=== PATIENT | male | born 1955 | race Caucasian/White ===

== ENCOUNTER 2019-06-14 07:12 | Emergency (ER) | payer BC, OTHER ==
[~2019-06-14] VITALS: Ht 185.4 cm; Wt 93.0 kg
[~2019-06-14 07:12] MED LIST: APIX5TAB3 PO; CARV6.252 PO; DULA0.75 SQ; FENO145T38 PO; FLEC100T2 PO; GLIM2TAB3 PO; HYDR25TA4 PO; METF-517 PO; MULT-1085 PO; MULT-1168 PO; OMEG1CAP46 PO; UBID1CAP54 PO; [UNRECOGNIZED DRUG - CODE] PO
[2019-06-14] MEDS ORDERED: diltiazem 5mg/ml 5ml inj. IV ONE (07:35)
[2019-06-14] MEDS ORDERED: magnesium 2GM in 50ml NS 50 ML IV ONE (07:35)
[2019-06-14] MEDS ORDERED: normal saline 1000ML IV soln IVB ONE (07:35)
[2019-06-14 08:11] LABS: BASOPHILS # (AUTO) 0.1 X10'3 (0-0.2); BASOPHILS % (AUTO) 1.1 % (0-1); EOSINOPHILS # (AUTO) 0.2 X10'3 (0-0.9); EOSINOPHILS % (AUTO) 3.2 % (0-6); HEMATOCRIT 44.8 % (42.0-52.0); HEMOGLOBIN 15.7 g/dl (14.0-17.9); LYMPHOCYTES # (AUTO) 1.4 X10'3 (1.1-4.8); MEAN CORPUSCULAR HEMOGLOBIN 32.2 PG (27.0-31.0); MEAN CORPUSCULAR HGB CONC 35.1 g/dL (33.0-36.5); MEAN CORPUSCULAR VOLUME 91.6 FL (78-98); MEAN PLATELET VOLUME 7.8 FL (7.4-10.4); MONOCYTES # (AUTO) 0.4 X10'3 (0-0.9); MONOCYTES % (AUTO) 6.1 % (2-12); NEUTROPHILS # (AUTO) 4.9 X10'3 (1.8-7.7); NEUTROPHILS % (AUTO) 69.6 % (42-75); PLATELET COUNT 191 X10'3 (140-440); RED BLOOD COUNT 4.89 X10'6 (4.70-6.10); RED CELL DISTRIBUTION WIDTH 13.7 % (11.5-14.5)
[2019-06-14 08:28] LABS: ALANINE AMINOTRANSFERASE 33 U/L (12-78); ALBUMIN 4.2 G/DL (3.4-5.0); ALBUMIN/GLOBULIN RATIO 1.3 (1.1-1.5); ALKALINE PHOSPHATASE 82 IU/L (46-116); ANION GAP 11 (8-16); ASPARTATE AMINO TRANSFERASE 18 U/L (10-37); BILIRUBIN,TOTAL 0.7 MG/DL (0.1-1.0); BLOOD UREA NITROGEN 19 MG/DL (7-18); BUN/CREATININE RATIO 22.4 (5.4-32.0); CALCIUM 9.2 MG/DL (8.5-10.1); CHLORIDE 108 MMOL/L (99-107); CREATININE 0.85 MG/DL (0.60-1.10); GLUCOSE 184 MG/DL (70-104); MAGNESIUM 2.2 MG/DL (1.5-2.4); POTASSIUM 3.9 MMOL/L (3.5-5.1); SODIUM 144 MMOL/L (135-145); TOTAL CARBON DIOXIDE 24.7 MMOL/L (24-32); TOTAL PROTEIN 7.5 G/DL (6.4-8.2); eGFR > 90 ML/MIN
[2019-06-14 08:42] LABS: PARTIAL THROMBOPLASTIN TIME 28 SECONDS (22-32)
[2019-06-14] MEDS ORDERED: MIDAZolam 5mg/ml 2ml vial IV ONE (09:05)
[2019-06-14] MEDS ORDERED: etomidate 2mg/ml inj. IV ONE (09:05)
[2019-06-14] MEDS ORDERED: metoprolol tartrate 1mg/ml inj IV ONE (09:05)
--- NOTE | 2019-06-14 10:11 | NUR ---
MD Paul at beside, cardioversion on hold at this time, metoprolol to be given.
--- NOTE | 2019-06-14 10:46 | NUR ---
MD Paul at bedside to begin cardioversion. TANK WAGON OPERATOR at bedside. at bedside. Pt consent already obtained
--- NOTE | 2019-06-14 10:49 | NUR ---
cardioversion shock administered at 200j per MD Paul
--- NOTE | 2019-06-14 10:51 | NUR ---
Per MD Paul, pt has converted to sinus rhythm
--- NOTE | 2019-06-14 11:10 | NUR ---
Pt walked a lap around the ER successfully with nurse at standby.
[2019-06-14 11:16] VITALS: BP 128/82
== END 2019-06-14 11:18 | disposition home or self-care (01) ==
LOC: ER 07:13
DX: I48.91 Unspecified atrial fibrillation (principal); E86.0 Dehydration; E78.00 Pure hypercholesterolemia, unspecified; I10 Essential (primary) hypertension; E11.9 Type 2 diabetes mellitus without complications; G89.29 Other chronic pain; Z98.890 Other specified postprocedural states; Z79.899 Other long term (current) drug therapy
CPT/HCPCS: 36415; 71045; 80053; 83735; 84484; 85025; 85610; 85730; 92960; 93005; 96365; 96375; 99291; J2250; J3475; J7030; J3490

== ENCOUNTER → 2019-09-26 | Emergency (ER) | payer OTHER ==
[~2019-09-26] VITALS: Ht 185.4 cm; Wt 94.0 kg
[~2019-09-26] MED LIST changes: -GLIM2TAB3 PO; +GLIM2TAB6 PO; +ROSU10TA2 PO; +propofol 1000mg/100ml bottle 100 ML IV ONE; +propofol 10mg/ml 20ml vial IV ONE
[2019-09-26 04:50] LABS: BASOPHILS # (AUTO) 0.1 X10'3 (0-0.2); BASOPHILS % (AUTO) 0.8 % (0-1); EOSINOPHILS # (AUTO) 0.4 X10'3 (0-0.9); EOSINOPHILS % (AUTO) 3.6 % (0-6); HEMATOCRIT 49.1 % (42.0-52.0); HEMOGLOBIN 17.2 g/dl (14.0-17.9); MEAN CORPUSCULAR HEMOGLOBIN 31.9 PG (27.0-31.0); MEAN CORPUSCULAR VOLUME 91.2 FL (78-98); MEAN PLATELET VOLUME 8.1 FL (7.4-10.4); MONOCYTES # (AUTO) 0.7 X10'3 (0-0.9); MONOCYTES % (AUTO) 7.3 % (2-12); NEUTROPHILS # (AUTO) 6.5 X10'3 (1.8-7.7); NEUTROPHILS % (AUTO) 67.3 % (42-75); PLATELET COUNT 210 X10'3 (140-440); RED BLOOD COUNT 5.39 X10'6 (4.70-6.10); RED CELL DISTRIBUTION WIDTH 13.5 % (11.5-14.5); WHITE BLOOD COUNT 9.6 X10'3 (4.5-11.0)
[2019-09-26 04:56] LABS: PARTIAL THROMBOPLASTIN TIME 27 SECONDS (22-32)
[2019-09-26 04:57] LABS: ALANINE AMINOTRANSFERASE 38 U/L (12-78); ALBUMIN 4.5 G/DL (3.4-5.0); ALBUMIN/GLOBULIN RATIO 1.4 (1.1-1.5); ALKALINE PHOSPHATASE 128 IU/L (46-116); ANION GAP 10 (8-16); ASPARTATE AMINO TRANSFERASE 11 U/L (10-37); BILIRUBIN,TOTAL 0.4 MG/DL (0.1-1.0); BLOOD UREA NITROGEN 16 MG/DL (7-18); BUN/CREATININE RATIO 17.4 (5.4-32.0); CALCIUM 9.5 MG/DL (8.5-10.1); CHLORIDE 105 MMOL/L (99-107); CREATININE 0.92 MG/DL (0.60-1.10); GLUCOSE 251 MG/DL (70-104); POTASSIUM 3.6 MMOL/L (3.5-5.1); SODIUM 141 MMOL/L (135-145); TOTAL CARBON DIOXIDE 25.6 MMOL/L (24-32); TOTAL PROTEIN 7.8 G/DL (6.4-8.2); eGFR 83 ML/MIN
--- NOTE | 2019-09-26 05:44 | NUR ---
DIPRIVAN TITRATED VIA IV PUSH UP TO [address] NIELSEN FOR 8 MINUTES TO ACCOMPLISH MODERATE SEDATION. RT AT BEDSIDE. PT CARDIOVERTED ONCE HE ATTAINED MODERATE SEDATION.
--- NOTE | 2019-09-26 05:45 | NUR ---
900MG PROPOFOL WASTED WITH STEFANIE GALVAN RN
[2019-09-26 06:15] VITALS: BP 134/82
== END | disposition home or self-care (01) ==
LOC: ER 04:04
DX: I48.0 Paroxysmal atrial fibrillation (principal); E78.00 Pure hypercholesterolemia, unspecified; I10 Essential (primary) hypertension; E11.9 Type 2 diabetes mellitus without complications; G89.29 Other chronic pain; Z98.890 Other specified postprocedural states; Z79.899 Other long term (current) drug therapy
CPT/HCPCS: 36415; 80053; 82948; 84484; 85025; 85610; 85730; 92960; 93005; 99285; J2704

== ENCOUNTER 2023-03-05 21:38 | Emergency (ER) | payer MEDICARE ==
[~2023-03-05] VITALS: Ht 185.4 cm; Wt 207.0 kg
[~2023-03-05 21:38] MED LIST changes: -APIX5TAB3 PO; -HYDR25TA4 PO; -MULT-1085 PO; -OMEG1CAP46 PO; -UBID1CAP54 PO; -propofol 1000mg/100ml bottle 100 ML IV ONE; -propofol 10mg/ml 20ml vial IV ONE
[2023-03-05 21:56] LABS: BASOPHILS # (AUTO) 0.1 X10'3 (0-0.2); LYMPHOCYTES # (AUTO) 2.9 X10'3 (1.1-4.8); MONOCYTES # (AUTO) 0.6 X10'3 (0-0.9); NEUTROPHILS # (AUTO) 4.7 X10'3 (1.8-7.7); WHITE BLOOD COUNT 8.6 X10'3 (4.5-11.0)
[2023-03-05 21:57] LABS: EOSINOPHILS # (AUTO) 0.4 X10'3 (0-0.9); EOSINOPHILS % (AUTO) 4.1 % (0-6); HEMATOCRIT 46.8 % (42.0-52.0); HEMOGLOBIN 16.3 g/dl (14.0-17.9); LYMPHOCYTES % (AUTO) 34.1 % (21-51); MEAN CORPUSCULAR HGB CONC 34.7 g/dL (33.0-36.5); MONOCYTES % (AUTO) 6.6 % (2-12); NEUTROPHILS % (AUTO) 54.2 % (42-75); PLATELET COUNT 180 X10'3 (140-440); RED BLOOD COUNT 4.78 X10'6 (4.70-6.10); RED CELL DISTRIBUTION WIDTH 13.4 % (11.5-14.5)
[2023-03-05 22:18] LABS: ALANINE AMINOTRANSFERASE 33 U/L (12-78); ALBUMIN 4.6 G/DL (3.4-5.0); ALBUMIN/GLOBULIN RATIO 1.3 (1.1-1.5); ALKALINE PHOSPHATASE 104 IU/L (46-116); ANION GAP 13 (8-16); BILIRUBIN,TOTAL 0.5 MG/DL (0.1-1.0); BLOOD UREA NITROGEN 26 MG/DL (7-18); BUN/CREATININE RATIO 24.5 (10.0-20.0); CALCIUM 9.2 MG/DL (8.5-10.1); CHLORIDE 105 MMOL/L (99-107); CREATININE 1.06 MG/DL (0.60-1.10); GLUCOSE 163 MG/DL (70-104); SODIUM 141 MMOL/L (135-145); TOTAL CARBON DIOXIDE 23.4 MMOL/L (24-32); TOTAL PROTEIN 8.1 G/DL (6.4-8.2); eGFR 69 ML/MIN
[2023-03-05 22:41] LABS: ASPARTATE AMINO TRANSFERASE 14 U/L (10-37)
[2023-03-05 22:47] LABS: POTASSIUM 3.9 MMOL/L (3.5-5.1)
[2023-03-06] MEDS ORDERED: normal saline 500ml IV soln 500 ML IV ONE (04:05)
[2023-03-06 05:04] VITALS: BP 147/81
== END 2023-03-06 05:43 | disposition home or self-care (01) ==
LOC: ER 21:38
DX: R42 Dizziness and giddiness (principal); I10 Essential (primary) hypertension; E78.00 Pure hypercholesterolemia, unspecified; E11.9 Type 2 diabetes mellitus without complications
CPT/HCPCS: 36415; 71045; 80053; 82948; 83880; 84484; 85025; 93005; 99285; J7040

== ENCOUNTER 2023-07-05 08:58 | Inpatient (IN) | payer MEDICARE ==
[2023-07-05] VITALS (16 sets, daily range): BP systolic 121–146; BP diastolic 62–82; PULSE 64–92; RESP 10–20; TEMP 97.8; O2SAT 91–99
[~2023-07-05] VITALS: Ht 185.4 cm; Wt 90.9 kg
[2023-07-05] MEDS ORDERED: ipratropium/albuterol 3ml nebule NEB ONE (09:05)
[2023-07-05] MEDS ORDERED: methylPREDNISolone sod succ 125mg/2ml vial IV ONE (09:05)
[2023-07-05 09:33] LABS: BASOPHILS # (AUTO) 0.1 X10'3 (0-0.2); BASOPHILS % (AUTO) 0.8 % (0-1); EOSINOPHILS # (AUTO) 0.2 X10'3 (0-0.9); EOSINOPHILS % (AUTO) 2.1 % (0-6); HEMATOCRIT 40.5 % (42.0-52.0); HEMOGLOBIN 14.2 g/dl (14.0-17.9); LYMPHOCYTES # (AUTO) 1.2 X10'3 (1.1-4.8); LYMPHOCYTES % (AUTO) 10.6 % (21-51); MEAN CORPUSCULAR HEMOGLOBIN 34.3 PG (27.0-31.0); MEAN CORPUSCULAR HGB CONC 35.1 g/dL (33.0-36.5); MEAN CORPUSCULAR VOLUME 97.7 FL (78-98); MEAN PLATELET VOLUME 8.1 FL (7.4-10.4); MONOCYTES # (AUTO) 0.7 X10'3 (0-0.9); MONOCYTES % (AUTO) 6.8 % (2-12); NEUTROPHILS # (AUTO) 8.6 X10'3 (1.8-7.7); NEUTROPHILS % (AUTO) 79.7 % (42-75); PLATELET COUNT 244 X10'3 (140-440); RED BLOOD COUNT 4.14 X10'6 (4.70-6.10); RED CELL DISTRIBUTION WIDTH 12.8 % (11.5-14.5); WHITE BLOOD COUNT 10.8 X10'3 (4.5-11.0)
[2023-07-05 09:44] LABS: D-DIMER 1.74 MG/L FEU (0-0.50)
[2023-07-05 10:24] LABS: ALANINE AMINOTRANSFERASE 38 U/L (12-78); ALBUMIN 3.9 G/DL (3.4-5.0); ALKALINE PHOSPHATASE 130 IU/L (46-116); ANION GAP 9 (8-16); ASPARTATE AMINO TRANSFERASE 34 U/L (10-37); BILIRUBIN,TOTAL 0.8 MG/DL (0.1-1.0); BLOOD UREA NITROGEN 11 MG/DL (7-18); BUN/CREATININE RATIO 14.3 (10.0-20.0); CALCIUM 9.4 MG/DL (8.5-10.1); CHLORIDE 102 MMOL/L (99-107); CREATININE 0.77 MG/DL (0.60-1.10); GLUCOSE 216 MG/DL (70-104); POTASSIUM 4.1 MMOL/L (3.5-5.1); SODIUM 136 MMOL/L (135-145); TOTAL CARBON DIOXIDE 24.8 MMOL/L (24-32); TOTAL PROTEIN 7.8 G/DL (6.4-8.2); eCRCL 104 ML/MIN; eGFR > 90 ML/MIN
[2023-07-05 10:35] LABS: PRO BRAIN NATRIURETIC PEPTIDE 153 PG/ML (0-125)
[2023-07-05] MEDS ORDERED: iohexol 350MG/ML 100ml bottle IV ONE (10:45)
--- NOTE | 2023-07-05 10:45 | NUR ---
PER DR HOLT PT OKAY TO TAKE HIS OWN MORNING MEDICATIONS THAT HAS BROUGHT TO BEDSIDE.
--- NOTE | 2023-07-05 10:47 | NUR ---
HOME MEDS GIVEN BY WERE: JARDIANCE, AMLODIPINE, BENZAPRIL, CARVEDILOL, GLIMPERIDE
[2023-07-05] MEDS: MESSAGE TO NURSING IV SCH (11:00)
[2023-07-05] MEDS ORDERED: PRED20TA PO (11:41)
[2023-07-05] MEDS ORDERED: ALBU6.7H14 INH (11:41)
--- NOTE | 2023-07-05 12:11 | NUR ---
PT AMBULATED TO RESTROOM WITHOUT ASSISTANCE
[2023-07-05] MEDS ORDERED: potassium Cl 20 mEq SR tablet PO PRN ×2 (13:05)
[2023-07-05] MEDS ORDERED: morphine 2 MG/ML inj. syringe IV PRN ×3 (13:05→20:25)
[2023-07-05] MEDS ORDERED: magnesium 4gm in 100ml NS 100 ML IV PRN (13:05)
[2023-07-05] MEDS ORDERED: ondansetron/PF 4mg/2ml inj IV PRN ×4 (13:05→22:00)
[2023-07-05] MEDS ORDERED: magnesium Cl slow-release 64mg tablet PO PRN (13:05)
[2023-07-05] MEDS ORDERED: CefTRIAXone 2gm/D5W 50ml BAG 50 ML IV ONE (13:05)
[2023-07-05] MEDS ORDERED: potassium Cl 40MEQ/1/2NS 520ml 520 ML IV PRN (13:05)
[2023-07-05] MEDS ORDERED: magnesium 2GM in 50ml NS 50 ML IV PRN (13:05)
[2023-07-05] MEDS ORDERED: acetaminophen 325mg tablet PO PRN (13:05)
[2023-07-05] MEDS: normal saline 1000ml 1,000 ML IV SCH (13:14)
[2023-07-05] MEDS ORDERED: FLEC50TA PO (13:19)
[2023-07-05] MEDS ORDERED: DULA1.5P SQ (13:19)
[2023-07-05] MEDS ORDERED: METF-900 PO (13:19)
[2023-07-05] MEDS ORDERED: CARV25TA3 PO (13:19)
[2023-07-05] MEDS ORDERED: BENA40TA72 PO (13:19)
[2023-07-05] MEDS ORDERED: APIX5TAB3 PO (13:19)
[2023-07-05] MEDS ORDERED: EMPA10TA PO (13:19)
[2023-07-05] MEDS ORDERED: AMLO10TA13 PO (13:19)
[2023-07-05] MEDS ORDERED: GLIM4TAB7 PO (13:19)
[2023-07-05] MEDS ORDERED: ROSU10TA28 PO (13:19)
[2023-07-05 13:29] LABS: MAGNESIUM 2.2 MG/DL (1.5-2.4)
--- NOTE | 2023-07-05 15:16 | NUR ---
PT PLACED ON HOSPITAL BED
[2023-07-05 16:20] LABS: HEMOGLOBIN A1C 8.1 % (4.5-6.2)
--- NOTE | 2023-07-05 16:40 | NUR ---
MRSA SWAB COLLECTED
--- NOTE | 2023-07-05 17:56 | NUR ---
DR LOZADA AT BEDSIDE
--- NOTE | 2023-07-05 18:15 | NUR ---
REPORT GIVEN TO SALES ADMINISTRATION MANAGERJARED BENNETT
[2023-07-05] MEDS ORDERED: INDOCYANINE GREEN 25 MG/10 ML VIAL IV ONE (18:54)
[2023-07-05] MEDS ORDERED: BUPIVAcaine 0.5% inj/PF 30 ML ONE (18:54)
[2023-07-05] MEDS ORDERED: hydrALAZINE 20mg/ml inj. IV PRN ×2 (18:55→20:25)
[2023-07-05] MEDS ORDERED: fentaNYL/PF 50MCG/1 ML 2ML syringe IV PRN ×3 (18:55→20:25)
[2023-07-05] MEDS ORDERED: morphine 4 MG/ML inj SYRINge IV PRN ×2 (18:55→20:25)
[2023-07-05] MEDS ORDERED: ringers solution, lacted 1,000 ML IV SCH ×2 (18:55→20:25)
[2023-07-05] MEDS ORDERED: labetalol 20mg/4ml (5mg/ml) syringe IV PRN ×2 (18:55→20:25)
[2023-07-05] MEDS ORDERED: midazolam 1 mg/ML 2ml injection ONE (19:25)
[2023-07-05] MEDS ORDERED: fentaNYL/PF 50MCG/1 ML 2ML syringe ONE (19:25)
[2023-07-05] MEDS ORDERED: LIDOcaine 2% (20mg/ml) 5ml vial ONE (19:26)
[2023-07-05] MEDS ORDERED: propofol inj 20 ML IV ONE (19:26)
[2023-07-05] MEDS ORDERED: rocuronium 10mg/ml inj IV ONE ×2 (19:26→21:15)
[2023-07-05] MEDS ORDERED: ondansetron/PF 4mg/2ml inj ONE (19:26)
[2023-07-05] MEDS ORDERED: desflurane 240ml liquid inh. IH ONE (19:40)
[2023-07-05] MEDS ORDERED: dexamethasone sod phosphate 10mg/ml inj ONE (19:40)
[2023-07-05] MEDS ORDERED: ceFAZolin 1000mg inj ONE ×2 (20:03)
[2023-07-05] MEDS ORDERED: sugammadex 200mg/2ml injection IV ONE (20:06)
[2023-07-05] MEDS ORDERED: BUPIVAcaine/PF 2.5 mg/ml (0.25%) 30ml vial IJ ONE (20:40)
[2023-07-05] MEDS ORDERED: bacitracin 15gm ointment TP ONE ×2 (21:38→22:05)
--- NOTE | 2023-07-05 21:50 | NUR ---
Received from OR via BED IN STABLE CONDITION , accompanied by Anesthesiologist and DYNAMIC BALANCER SET UP WORKER report given by DYNAMIC BALANCER SET UP WORKER AND Anesthesiologist. Addendum: 07/05/23 at 2210 by Barb Porras RN Amended: Links added.
[2023-07-05] MEDS ORDERED: HYDROmorphone inj. 0.5 MG/0.5 ML DISP.SYRIN IV ONE (22:00)
[2023-07-05] MEDS ORDERED: naloxone 0.4 mg/ml inj IV PRN (22:00)
[2023-07-05] MEDS: fentaNYL/PF 50MCG/1 ML 2ML syringe IV PRN ×2 (22:04→22:28)
[2023-07-05] MEDS ORDERED: acetaminophen 1,000mg/100ml IV 100 ML IV ONE (22:05)
[2023-07-05] MEDS: HYDROcodone/acetaminophen 10/325mg tab PO PRN (23:06)
--- NOTE | 2023-07-05 23:43 | NUR ---
PATIENT DISCHARGED FROM PACU IN STABLE CONDITION AFTER REPORT GIVEN TO RN TAKING OVER PATIENTS CARE. PATIENT TRANSFERRED TO ROOM [facility] VIA BED WITH RNX2. Addendum: 07/05/23 at 2346 by Barb Porras RN Amended: Links added.
[2023-07-06] VITALS (12 sets, daily range): BP systolic 114–144; BP diastolic 54–74; PULSE 65–81; RESP 12–20; TEMP 97.1–98.4; O2SAT 91–97
[2023-07-06] MEDS ORDERED: ceFOXitin 1 GM/D5W 50mL IVPB 50 ML IV SCH
[2023-07-06] MEDS ORDERED: methylPREDNISolone sod succ 125mg/2ml vial IV SCH
--- NOTE | 2023-07-06 00:01 | NUR ---
family accompanied patient to bedside. 4009C. oriented to routine, call light etc. family went home soon after. pt resting, eyes closed "the [employer] is working". VSS, oxygen 2L noted sats 96%. urinal in reach, water. dressings CDI
[2023-07-06] MEDS: K and/or MAG REPLACEMENT MC SCH ×3 (00:12→20:00)
[2023-07-06] MEDS: normal saline 1000ml 1,000 ML IV SCH ×3 (00:14→19:28)
[2023-07-06] MEDS: ceFOXitin inj 1,000 MG in normal saline 100ml IV soln 100 ML IV SCH ×3 (00:39→15:40)
[2023-07-06] MEDS ORDERED: DEXTROSE 15 GM of carb/4 tabs (each vial/BOTTLE has 4 tablets) PO PRN ×2 (00:45)
[2023-07-06] MEDS ORDERED: MESSAGE TO PHARMACY PO ONE (00:45)
[2023-07-06] MEDS ORDERED: glucagon, human recombinant 1mg kit SUBCUT PRN (00:45)
[2023-07-06] MEDS ORDERED: dextrose 50%-water 50ml dispensing syringe IV PRN ×2 (00:45)
[2023-07-06] MEDS: insulin Lispro (HumaLOG) vial - multi-dose SQ SCH ×4 (01:39→19:24)
[2023-07-06] MEDS: insulin glargine (Lantus) pen - multi-dose SQ SCH ×2 (01:39→21:03)
[2023-07-06] MEDS: HYDROcodone/acetaminophen 10/325mg tab PO PRN ×4 (03:06→21:10)
--- NOTE | 2023-07-06 06:14 | NUR ---
Patient in room ORTHO 4009. I have received report from JARED Evans and had the opportunity to ask questions and assume patient care.
--- NOTE | 2023-07-06 06:22 | NUR ---
reported to days. noted pt up to bathroom, encouraged to walk. using pillow to splint abd.
[2023-07-06 07:06] LABS: BASOPHILS % (AUTO) 0.3 % (0-1); EOSINOPHILS % (AUTO) 0 % (0-6); HEMATOCRIT 40.6 % (42.0-52.0); HEMOGLOBIN 13.8 g/dl (14.0-17.9); LYMPHOCYTES # (AUTO) 1.1 X10'3 (1.1-4.8); LYMPHOCYTES % (AUTO) 6.3 % (21-51); MEAN CORPUSCULAR HEMOGLOBIN 33.7 PG (27.0-31.0); MEAN CORPUSCULAR HGB CONC 33.9 g/dL (33.0-36.5); MEAN CORPUSCULAR VOLUME 99.7 FL (78-98); MEAN PLATELET VOLUME 8.5 FL (7.4-10.4); MONOCYTES # (AUTO) 1.3 X10'3 (0-0.9); NEUTROPHILS # (AUTO) 15.7 X10'3 (1.8-7.7); NEUTROPHILS % (AUTO) 86.4 % (42-75); PLATELET COUNT 249 X10'3 (140-440); RED BLOOD COUNT 4.08 X10'6 (4.70-6.10); RED CELL DISTRIBUTION WIDTH 13.4 % (11.5-14.5); WHITE BLOOD COUNT 18.2 X10'3 (4.5-11.0)
[2023-07-06 07:17] LABS: ALBUMIN 3.5 G/DL (3.4-5.0); ANION GAP 19 (8-16); BLOOD UREA NITROGEN 23 MG/DL (7-18); CALCIUM 8.9 MG/DL (8.5-10.1); CHLORIDE 102 MMOL/L (99-107); CREATININE 0.96 MG/DL (0.60-1.10); GLUCOSE 220 MG/DL (70-104); MAGNESIUM 2.5 MG/DL (1.5-2.4); POTASSIUM 4.2 MMOL/L (3.5-5.1); SODIUM 140 MMOL/L (135-145); TOTAL CARBON DIOXIDE 19.3 MMOL/L (24-32); eCRCL 83 ML/MIN; eGFR 78 ML/MIN
[2023-07-06] MEDS: carVEDilol 12.5mg tablet PO SCH ×2 (07:50→20:59)
[2023-07-06] MEDS: amLODIPine 5mg tablet PO SCH (07:50)
[2023-07-06] MEDS: lisinopril 20mg tablet PO SCH (07:51)
--- NOTE | 2023-07-06 08:21 | NUR ---
Patient reports flatulence this AM. Absent at the time of physical assessment. Addendum: 07/06/23 at 0826 by Herlinda THAYER Amended: Links added.
--- NOTE | 2023-07-06 10:46 | NUR ---
Diabetes consult: Pt s/p robotic laparoscopic cholecystectomy and hernia repair per EMR. Pt presents with an A1c of 8.1% this admit per EMR. Pt and 2 other family members present at bedside during time of visit. Provided verbal/written diabetes and lower fat nutrition education handouts. Pt reports prior A1c of 9.3% about 3-4 weeks ago at the doctors office, sees his primary doctor about every 3-6 months for diabetes management, and takes his medication as prescribed. Pt reports he's been intentional about eating foods lower in carbohydrates and incorporating more fruits/vegetables into his diet. Pt request sugar free jello and [place] ice with every lunch and dinner; communicated with dietary. RD contact also provided and encouraged pt/family to reach out for any nutrition questions or concerns. Addendum: 07/06/23 at [address] Amended: Links added.
[2023-07-06] MEDS: MESSAGE TO NURSING IV SCH (11:00)
[2023-07-06] MEDS ORDERED: ondansetron 4mg rapidly disintigrating tab PO PRN (11:35)
--- NOTE | 2023-07-06 17:51 | NUR ---
Student documentation: I have reviewed and agree with physical assessments performed and documented by SN Kane.
--- NOTE | 2023-07-06 18:23 | NUR ---
Problems reprioritized. Patient report given, questions answered & plan of care reviewed with JARED Calderon.
--- NOTE | 2023-07-06 19:05 | NUR ---
Patient in room ORTHO 4009. I have received report from [place] COLEMAN and had the opportunity to ask questions and assume patient care.
[2023-07-06] MEDS: flecainide 50mg tablet PO SCH (20:55)
[2023-07-06] MEDS: ROSUVASTATIN CALCIUM 5 MG TABLET PO SCH (20:55)
[2023-07-07] MEDS: ceFOXitin inj 1,000 MG in normal saline 100ml IV soln 100 ML IV SCH ×4 (01:03→23:48)
--- NOTE | 2023-07-07 04:08 | NUR ---
Patient up and about. Medicated x1 for pain with good result. Mitchell sero/sang drainage 60mls so far. Sleeping at this time
[2023-07-07] MEDS: normal saline 1000ml 1,000 ML IV SCH ×2 (04:38→16:13)
--- NOTE | 2023-07-07 05:49 | NUR ---
Tele D'cd per 24hr protocol. Patient appears comfortable
[2023-07-07 06:00] VITALS: BP 159/86; PULSE 68; RESP 16; TEMP 98; O2SAT 93
[2023-07-07 06:15] LABS: BASOPHILS % (AUTO) 0.1 % (0-1); EOSINOPHILS % (AUTO) 0 % (0-6); HEMOGLOBIN 12.6 g/dl (14.0-17.9); LYMPHOCYTES # (AUTO) 1.2 X10'3 (1.1-4.8); MEAN CORPUSCULAR HEMOGLOBIN 34.1 PG (27.0-31.0); MEAN CORPUSCULAR HGB CONC 34.9 g/dL (33.0-36.5); MEAN CORPUSCULAR VOLUME 97.9 FL (78-98); MEAN PLATELET VOLUME 7.8 FL (7.4-10.4); MONOCYTES # (AUTO) 1.2 X10'3 (0-0.9); MONOCYTES % (AUTO) 8.1 % (2-12); NEUTROPHILS # (AUTO) 12.3 X10'3 (1.8-7.7); NEUTROPHILS % (AUTO) 83.8 % (42-75); PLATELET COUNT 239 X10'3 (140-440); RED BLOOD COUNT 3.68 X10'6 (4.70-6.10); RED CELL DISTRIBUTION WIDTH 13.1 % (11.5-14.5); WHITE BLOOD COUNT 14.6 X10'3 (4.5-11.0)
[2023-07-07 06:20] LABS: ALBUMIN 3.3 G/DL (3.4-5.0); ANION GAP 11 (8-16); BLOOD UREA NITROGEN 22 MG/DL (7-18); BUN/CREATININE RATIO 23.9 (10.0-20.0); CALCIUM 8.8 MG/DL (8.5-10.1); CHLORIDE 104 MMOL/L (99-107); CREATININE 0.92 MG/DL (0.60-1.10); GLUCOSE 103 MG/DL (70-104); MAGNESIUM 2.5 MG/DL (1.5-2.4); SODIUM 139 MMOL/L (135-145); TOTAL CARBON DIOXIDE 24.4 MMOL/L (24-32); eCRCL 87 ML/MIN; eGFR 82 ML/MIN
--- NOTE | 2023-07-07 06:20 | NUR ---
Problems reprioritized. Patient report given, questions answered & plan of care reviewed with Rene CRUZ.
--- NOTE | 2023-07-07 06:39 | NUR ---
Patient in room ORTHO 4009. I have received report from Yumiko COLEMAN and had the opportunity to ask questions and assume patient care.
[2023-07-07] MEDS: carVEDilol 12.5mg tablet PO SCH ×2 (07:12→20:35)
[2023-07-07] MEDS: lisinopril 20mg tablet PO SCH (07:12)
[2023-07-07] MEDS: amLODIPine 5mg tablet PO SCH (07:12)
[2023-07-07 07:20] VITALS: RESP 16
[2023-07-07] MEDS: K and/or MAG REPLACEMENT MC SCH ×2 (08:00→20:00)
--- NOTE | 2023-07-07 09:30 | NUR ---
pt bs was 93 this am, he only ate 8 g of carbs. he did not want any insulin this am. wants to just see what bs is at lunch. will let md know
[2023-07-07 10:00] VITALS: BP 134/71; PULSE 71; RESP 16; TEMP 98.2; O2SAT 93
[2023-07-07] MEDS: HYDROcodone/acetaminophen 10/325mg tab PO PRN (11:41)
--- NOTE | 2023-07-07 14:00 | NUR ---
PT HAD A BS OF 113 AND ATE ABOUT 28 CARBS, ASKED IF HE WANTED INSULIN FOR THIS. HE STATED HE DID NOT AND WOULD WAIT TILL DINNER TO SEE WHAT HIS BS IS .
[2023-07-07 14:55] LABS: HBSAG SCREEN Negative (Negative); HEP B CORE AB, IGM Negative (Negative); HEP B CORE AB, TOT Negative (Negative)
[2023-07-07 18:00] VITALS: BP 146/77; PULSE 76; RESP 16; TEMP 97.5; O2SAT 93
--- NOTE | 2023-07-07 18:55 | NUR ---
Problems reprioritized. Patient report given, questions answered & plan of care reviewed with Marcia COLEMAN.
--- NOTE | 2023-07-07 19:22 | NUR ---
Student documentation: I have reviewed all interventions, assessments performed and documented by Tabitha landers. Student Medication Administration: For this medication-time frame 7392-0529, all medication were reviewed, dispensed, administered and documented per hospital policy by Tabitha landers.
[2023-07-07 20:00] VITALS: RESP 16; O2SAT 93
[2023-07-07] MEDS: ROSUVASTATIN CALCIUM 5 MG TABLET PO SCH (20:34)
[2023-07-07] MEDS: flecainide 50mg tablet PO SCH (20:35)
[2023-07-07] MEDS: insulin glargine (Lantus) pen - multi-dose SQ SCH (20:42)
[2023-07-07] MEDS: apixaban 5mg tablet PO SCH (21:54)
[2023-07-07 22:00] VITALS: BP 143/72; PULSE 75; RESP 16; TEMP 97.8; O2SAT 92
[2023-07-08] MEDS: normal saline 1000ml 1,000 ML IV SCH ×3 (01:05→11:05)
--- NOTE | 2023-07-08 06:52 | NUR ---
Patient in room ORTHO 4009. I have received report from OMAR COLEMAN and had the opportunity to ask questions and assume patient care.
[2023-07-08 07:00] VITALS: BP 151/78; PULSE 75; RESP 16; TEMP 98.6; O2SAT 97
[2023-07-08] MEDS: ceFOXitin inj 1,000 MG in normal saline 100ml IV soln 100 ML IV SCH ×2 (07:37→15:19)
[2023-07-08] MEDS: apixaban 5mg tablet PO SCH (07:38)
[2023-07-08] MEDS: amLODIPine 5mg tablet PO SCH (07:38)
[2023-07-08] MEDS: carVEDilol 12.5mg tablet PO SCH (07:39)
[2023-07-08] MEDS: lisinopril 20mg tablet PO SCH (07:39)
[2023-07-08] MEDS: K and/or MAG REPLACEMENT MC SCH (08:00)
[2023-07-08 09:15] LABS: BASOPHILS % (AUTO) 0.2 % (0-1); EOSINOPHILS % (AUTO) 0.3 % (0-6); HEMATOCRIT 37.4 % (42.0-52.0); HEMOGLOBIN 12.9 g/dl (14.0-17.9); LYMPHOCYTES # (AUTO) 1.6 X10'3 (1.1-4.8); LYMPHOCYTES % (AUTO) 16.9 % (21-51); MEAN CORPUSCULAR HEMOGLOBIN 33.9 PG (27.0-31.0); MEAN CORPUSCULAR HGB CONC 34.6 g/dL (33.0-36.5); MEAN CORPUSCULAR VOLUME 98.2 FL (78-98); MEAN PLATELET VOLUME 7.9 FL (7.4-10.4); MONOCYTES % (AUTO) 11.2 % (2-12); NEUTROPHILS # (AUTO) 6.6 X10'3 (1.8-7.7); NEUTROPHILS % (AUTO) 71.4 % (42-75); PLATELET COUNT 216 X10'3 (140-440); RED BLOOD COUNT 3.81 X10'6 (4.70-6.10); RED CELL DISTRIBUTION WIDTH 12.9 % (11.5-14.5); WHITE BLOOD COUNT 9.3 X10'3 (4.5-11.0)
[2023-07-08 09:17] LABS: ALBUMIN 3.3 G/DL (3.4-5.0); ANION GAP 8 (8-16); BLOOD UREA NITROGEN 11 MG/DL (7-18); BUN/CREATININE RATIO 16.2 (10.0-20.0); CALCIUM 8.3 MG/DL (8.5-10.1); CHLORIDE 105 MMOL/L (99-107); CREATININE 0.68 MG/DL (0.60-1.10); GLUCOSE 133 MG/DL (70-104); MAGNESIUM 2.4 MG/DL (1.5-2.4); POTASSIUM 3.7 MMOL/L (3.5-5.1); SODIUM 139 MMOL/L (135-145); eCRCL 118 ML/MIN; eGFR > 90 ML/MIN
[2023-07-08 10:00] VITALS: BP 144/75; PULSE 78; RESP 14; TEMP 97.4; O2SAT 93
[2023-07-08] MEDS: insulin Lispro (HumaLOG) vial - multi-dose SQ SCH (13:30)
[2023-07-08] MEDS ORDERED: HYDR-3972 PO (15:16)
--- NOTE | 2023-07-08 16:35 | NUR ---
Patient seen by Dr Arshad, and Dr Mccall. ALE pulled without incident ,drainage has been 80mls sero sang . All Dc instructions given to patient . Meds picked up at pharmacy.. patient abdominal wound changed, band aides changed. Tommy to all sites intact. Patient DC home via private car with spouse in stable condition
== END 2023-07-08 16:30 | disposition home or self-care (01) | DRG 354 ==
LOC: ER 08:59 → ED HOLD 13:08 → ORTHO 4S 23:37
PROVIDERS: ADMIT Internal Medicine; ATTEND Internal Medicine
PROC: 8E0W4CZ Robotic Assisted Procedure of Trunk Region, Percutaneous Endoscopic Approach (ICD-10-PCS; 2023-07-05)
PROC: 0WQF0ZZ Repair Abdominal Wall, Open Approach (ICD-10-PCS; 2023-07-05)
PROC: B32T1ZZ Computerized Tomography (CT Scan) of Left Pulmonary Artery using Low Osmolar Contrast (ICD-10-PCS; 2023-07-05)
PROC: B3201ZZ Computerized Tomography (CT Scan) of Thoracic Aorta using Low Osmolar Contrast (ICD-10-PCS; 2023-07-05)
PROC: B32S1ZZ Computerized Tomography (CT Scan) of Right Pulmonary Artery using Low Osmolar Contrast (ICD-10-PCS; 2023-07-05)
PROC: 0FT44ZZ Resection of Gallbladder, Percutaneous Endoscopic Approach (ICD-10-PCS; principal; 2023-07-05 19:40)
DX: K42.9 Umbilical hernia without obstruction or gangrene (principal); K80.00 Calculus of gallbladder with acute cholecystitis without obstruction; I10 Essential (primary) hypertension; Z20.822 Contact with and (suspected) exposure to COVID-19; E78.00 Pure hypercholesterolemia, unspecified; E11.9 Type 2 diabetes mellitus without complications; G89.29 Other chronic pain; J20.9 Acute bronchitis, unspecified; I48.91 Unspecified atrial fibrillation; Z79.84 Long term (current) use of oral hypoglycemic drugs; Z79.899 Other long term (current) drug therapy; Z79.01 Long term (current) use of anticoagulants
CPT/HCPCS: 36415; 71045; 71275; 76700; 80048; 80053; 82948; 83036; 83735; 83880; 84145; 84484; 85025; 85379; 86704; 86705; 86885; 86900; 86901; 87081; 87340; 87811; 94640; 94668; 94760; 99285; A4215; A4615; A4618; A6209; A6449; A7000; G0378; J0131; J0690; J0694; J0696; J1100; J1815; J2250; J2405; J2704; J2930; J3010; J3490; J7030; J7120; Q9967; S0020